=== PATIENT | male | born 1965 | race Caucasian/White ===

== ENCOUNTER 2016-06-23 16:10 | Emergency (ER) | payer OTHER ==
[~2016-06-23] VITALS: Ht 177.8 cm; Wt 85.9 kg
[~2016-06-23 16:10] MED LIST: ADVIL,NUPRIN,M200 MG PO; ALLERGY RELIEF25 MG PO; AUGMENTIN500 MG PO; AZITHROMYCIN500 M1 PO; BENADRYL ALLERG25 MG PO; BENADRYL25 MG PO; BENADRYL50 MG PO; CELEXA40 MG PO; DELTASONE20 M1 PO; DELZICOL400 MG PO; DIAZEPAM10 MG PO; EPINEPHRIN0.15 MG/0. IM; EPIPEN ADU0.3 MG/0.3 IM; FEXOFENADINE H180 MG PO; HYDROXYZINE HCL25 MG PO; MEDROL DOSEPAK4 MG PO; OMEPRAZOLE40 M1 PO; PANTOPRAZOLE SO40 MG PO; PEPCID20 MG PO; PREDNISONE10 M1 PO; PREDNISONE10 MG PO; PREDNISONE20 MG PO; PREDNISONE50 MG PO; VALIUM5 MG PO; ZANTAC300 MG PO; ZYRTEC10 M3 PO; ZYRTEC10 M3 PR; predniSONE PO
[2016-06-23] MEDS ORDERED: VALTREX1000 MG PO (18:03)
[2016-06-23] MEDS ORDERED: LIDOCREAM15 GM TP (18:03)
[2016-06-23] MEDS ORDERED: TRAMADOL HCL50 MG PO (18:04)
[2016-06-23 18:10] VITALS: BP 159/90
== END 2016-06-23 18:23 | disposition home or self-care (01) ==
LOC: RME 16:10 → EME 16:10 → RME 18:23
DX: B02.9 Zoster without complications (principal)
CPT/HCPCS: 99281; 99283

== ENCOUNTER 2016-12-08 07:40 | Emergency (ER) | payer OTHER ==
[~2016-12-08] VITALS: Ht 177.8 cm; Wt 76.0 kg
[~2016-12-08 07:40] MED LIST changes: +LIDOCREAM15 GM TP; +TRAMADOL HCL50 MG PO; +VALTREX1000 MG PO
[2016-12-08] MEDS ORDERED: PEPCID20 MG PO (09:30)
[2016-12-08] MEDS ORDERED: BENADRYL50 MG PO (09:30)
[2016-12-08 12:01] VITALS: BP 116/75
== END 2016-12-08 12:11 | disposition home or self-care (01) ==
LOC: EME 07:40
DX: T78.3XXA Angioneurotic edema, initial encounter (principal); R13.10 Dysphagia, unspecified; F32.9 Major depressive disorder, single episode, unspecified; Z88.0 Allergy status to penicillin
CPT/HCPCS: 99281; 99285; J1200; J2930; J7030; S0028

== ENCOUNTER 2017-01-29 17:01 | Emergency (ER) | payer OTHER ==
[~2017-01-29] VITALS: Ht 175.3 cm; Wt 75.7 kg
[2017-01-29] MEDS ORDERED: DELTASONE20 M1 PO (20:00)
[2017-01-29 20:21] VITALS: BP 135/79
== END 2017-01-29 20:22 | disposition home or self-care (01) ==
LOC: EME 17:01
DX: T78.3XXA Angioneurotic edema, initial encounter (principal); R13.10 Dysphagia, unspecified; J02.9 Acute pharyngitis, unspecified; R49.0 Dysphonia
CPT/HCPCS: 94640; 99281; 99284; J1200; J2930

== ENCOUNTER 2017-06-21 04:59 | Emergency (ER) | payer OTHER ==
[~2017-06-21] VITALS: Ht 177.8 cm; Wt 77.5 kg
[2017-06-21] MEDS ORDERED: MEDROL DOSEPAK4 MG PO (08:46)
[2017-06-21] MEDS ORDERED: PEPCID20 MG PO (08:46)
[2017-06-21] MEDS ORDERED: BENADRYL25 MG PO (08:46)
[2017-06-21 10:53] VITALS: BP 116/82
== END 2017-06-21 11:01 | disposition home or self-care (01) ==
LOC: EME 04:59
DX: T78.3XXA Angioneurotic edema, initial encounter (principal); F32.9 Major depressive disorder, single episode, unspecified; R56.9 Unspecified convulsions; Z88.0 Allergy status to penicillin; Z88.5 Allergy status to narcotic agent
CPT/HCPCS: 99281; 99285; J1200; J2930; J7030; S0028

== ENCOUNTER 2017-07-05 07:21 | Emergency (ER) | payer OTHER ==
[~2017-07-05] VITALS: Ht 177.8 cm; Wt 76.5 kg
[2017-07-05] MEDS ORDERED: DIAZEPAM5 MG PO (07:35)
[2017-07-05] MEDS ORDERED: CITALOPRAM HBR20 MG PO (07:37)
[2017-07-05] MEDS ORDERED: PREDNISONE20 MG PO (10:13)
[2017-07-05] MEDS ORDERED: PEPCID40 MG PO (10:13)
[2017-07-05] MEDS ORDERED: BENADRYL50 MG PO (10:13)
[2017-07-05 10:32] VITALS: BP 106/70
== END 2017-07-05 10:33 | disposition home or self-care (01) ==
LOC: EME 07:21
DX: K12.2 Cellulitis and abscess of mouth (principal); F32.9 Major depressive disorder, single episode, unspecified; R56.9 Unspecified convulsions; Z87.891 Personal history of nicotine dependence; Z88.5 Allergy status to narcotic agent; Z88.0 Allergy status to penicillin
CPT/HCPCS: 99281; 99285; J1200; J2930; J7030; S0028

== ENCOUNTER 2017-07-13 14:07 | Emergency (ER) | payer OTHER ==
[~2017-07-13] VITALS: Ht 177.8 cm; Wt 77.4 kg
[~2017-07-13 14:07] MED LIST changes: +CITALOPRAM HBR20 MG PO; +DIAZEPAM5 MG PO; +PEPCID40 MG PO
[2017-07-13] MEDS ORDERED: PREDNISONE20 MG PO (17:16)
[2017-07-13 18:05] VITALS: BP 108/60
== END 2017-07-13 18:35 | disposition home or self-care (01) ==
LOC: EME 14:07
DX: T78.3XXA Angioneurotic edema, initial encounter (principal); R56.9 Unspecified convulsions; F32.9 Major depressive disorder, single episode, unspecified; Z87.891 Personal history of nicotine dependence; Z88.5 Allergy status to narcotic agent; Z88.0 Allergy status to penicillin; Z88.6 Allergy status to analgesic agent; Z88.1 Allergy status to other antibiotic agents; Z88.8 Allergy status to other drugs, medicaments and biological substances
CPT/HCPCS: 99281; 99285; J1200; J2930

== ENCOUNTER 2017-07-20 22:06 | Emergency (ER) | payer OTHER ==
[~2017-07-20] VITALS: Ht 177.8 cm; Wt 80.7 kg
[2017-07-20] MEDS ORDERED: PREDNISONE50 MG PO (23:02)
[2017-07-21 03:00] VITALS: BP 111/69
== END 2017-07-21 03:01 | disposition home or self-care (01) ==
LOC: EME 22:06
DX: T78.3XXA Angioneurotic edema, initial encounter (principal); F32.9 Major depressive disorder, single episode, unspecified; R56.9 Unspecified convulsions; Z87.891 Personal history of nicotine dependence; Z88.5 Allergy status to narcotic agent; Z88.0 Allergy status to penicillin; Z88.1 Allergy status to other antibiotic agents; Z88.6 Allergy status to analgesic agent; Z88.8 Allergy status to other drugs, medicaments and biological substances
CPT/HCPCS: 99281; 99284; J7512

== ENCOUNTER 2017-10-18 03:22 | Observation (INO) | payer OTHER ==
[~2017-10-18] VITALS: Ht 177.8 cm; Wt 79.7 kg
[2017-10-18 05:54] LABS: HEMATOCRIT 36.3 % (38.0-50.0); HEMOGLOBIN 12.6 G/DL (12.5-16.6); MCH 31.9 PG (29.0-34.0); MCHC 34.7 G/DL (30.0-36.0); MCV 91.9 FL (86-99); PLATELET COUNT 172 K/uL (156-360); RBC DIS.WIDTH-CV 12.4 % (11.8-14.6); RBC DIS.WIDTH-SD 41.4 % (39-53); RED BLOOD COUNT 3.95 M/uL (4.00-5.50); WHITE BLOOD COUNT 6.2 K/uL (4.1-10.2)
[2017-10-18 06:05] LABS: CHLORIDE 104 mEq/L (99-109); POTASSIUM 4.2 mEq/L (3.7-5.4); SODIUM 137 mEq/L (136-147)
[2017-10-18 06:06] LABS: GLUCOSE 167 mg/dL (70-99)
[2017-10-18 06:10] LABS: CREATININE 0.7 mg/dL (0.6-1.3); GFR ESTIMATE (CALCULATED) > 59 mL/min/ (58.99-99999)
[2017-10-18 06:11] LABS: UREA NITROGEN (BUN) 15 mg/dL (9-23)
[2017-10-18] MEDS ORDERED: OMEPRAZOLE40 M1 PO (07:38)
[2017-10-18] MEDS ORDERED: B-COMPLEX-VITA1 EACH PO (07:38)
[2017-10-18 09:17] VITALS: BP 131/78
[2017-10-18 11:24] VITALS: BP 136/72
[2017-10-18 15:46] VITALS: BP 106/55
[2017-10-18] MEDS ORDERED: BENADRYL25 MG PO (17:10)
[2017-10-18] MEDS ORDERED: PEPCID AC20 MG PO (17:10)
[2017-10-18] MEDS ORDERED: PREDNISONE20 MG PO (17:10)
== END 2017-10-18 17:52 | disposition home or self-care (01) ==
LOC: EME 03:22 → EDOF 07:34 → ENRESERV 07:37 → 4SOUTH 09:13
PROVIDERS: Emergency Medicine
DX: T78.3XXA Angioneurotic edema, initial encounter (principal); K51.90 Ulcerative colitis, unspecified, without complications; Z87.891 Personal history of nicotine dependence; Z88.0 Allergy status to penicillin; Z88.5 Allergy status to narcotic agent; Z88.6 Allergy status to analgesic agent
CPT/HCPCS: 71045; 80048; 85027; 99281; 99285; G0378; J1200; J1644; J2930; J7030; J7512; S0028